=== PATIENT | female | born 1985 | race American Indian/Alaskan Native ===

== ENCOUNTER 2018-10-11 20:21 | Emergency (ER) | payer MEDICAID, OTHER ==
--- NOTE | 2018-10-11 20:28 | Event Note ---
ED Screening Note ED Screening Note: pt presents with pelvic pain that began two days ago + lower back pain +frequency, decreased output no dysuria no vaginal discharge no V/D normal BM earlier today no PMHx FOREP[facility]PER appt on 10/[address] Brody no allergies to medications LNMP: middle of september non smoker +occ drinker no drug use This initial assessment/diagnostic orders/clinical plan/treatment(s) is/are subject to change based on patients health status, clinical progression and re- assessment by fellow clinical providers in the ED. Further treatment and workup at subsequent clinical providers discretion. Patient/guardian urged not to elope from the ED as their condition may be serious if not clinically assessed and managed. Initial orders include: UA, urine preg
[2018-10-11 20:51] LABS: Bacteria,Urine 1+ /HPF (Negative); Bilirubin,Urine NEG (Negative); Blood,Urine NEG (Negative); Color,Urine Yellow (Yellow); Mucus,Urine 3+ /HPF; Protein,Urine <15 mg/dL mg/dL (Negative)
[2018-10-11 20:52] LABS: HCG Qualitative,Urine Negative (Negative)
[2018-10-11] MEDS ORDERED: MORPHINE IV ONE (23:26)
[2018-10-11] MEDS ORDERED: ZOFRAN IV ONE (23:27)
[2018-10-12 00:28] LABS: Alanine Aminotransferase 11 units/L (7-56); Albumin 3.8 g/dL (3.9-5); BUN/Creatinine Ratio 21; Blood Urea Nitrogen 15 mg/dL (7-17); Calcium 9.2 mg/dL (8.4-10.2); Hemolysis Index 8
--- NOTE | 2018-10-12 01:09 | Cat Scan Report ---
PROCEDURE: CT ABDOMEN PELVIS W CON TECHNIQUE: Computerized axial tomography of the abdomen and pelvis was performed after the IV inject ion of iodinated nonionic contrast. CT DOSE LENGTH PRODUCT: 2661.5 mGycm HISTORY: ABDOMINAL PAIN COMPARISONS: None . FINDINGS: Visualized lower thorax: No significant abnormality. Liver: Normal size and attenuation. Spleen: Normal size and attenuation. Gallbladder and biliary system: Normal. Pancreas: Normal. Adrenals: Normal. Kidneys: Normal. GI tract: No obstruction. No ileus or enteritis. The cecum, appendix and colon are normal. . Lymph nodes and mesentery: Normal. Vasculature: Normal.. Bladder: Normal. Reproductive organs: Normal 4 cm cyst in the left ovary. Minimal fluid lower pelvis.. Peritoneum: Minimal fluid lower pelvis. Musculoskeletal structures: No significant abnormality. Other: None . IMPRESSION: There is no evidence of intestinal or urinary tract obstruction. No ileus or enteritis. The appendix is normal. Minimal fluid lower pelvis is most likely physiologic. . This document is electronically signed by Ashley Kapadia DO., October 12 2018 01:07:05 AM ET
--- NOTE | 2018-10-12 01:46 | Emergency Department Report ---
ED General Adult HPI - General Chief complaint: Abdominal Pain Stated complaint: PELVIC/BACK/R LEG PAIN Time Seen by Provider: 10/11/18 20:26 Source: patient Mode of arrival: Ambulatory Limitations: No Limitations - History of Present Illness Initial comments: Patient is a 33-year-old -N[place]alese female with no past medical history who presents to the ED with a complaint of acute onset persistent low back pain that radiates to the lower abdomen and to the right lower extremities for the last 2 weeks. Patient states that in the last 2 days the pain has worsened especially lower back and lower abdominal pain. Patient denies nausea, vomiting, fever, chills, vaginal discharge, vaginal bleeding, dysuria, urinary frequency and urgency, fall, traumatic injury, heavy lifting, dizziness, numbness and tingling of the lower extremities bilaterally, urinary or bowel incontinence, diarrhea or dyspareunia. MD Complaint: Low back pain; Lower abdominal pain, Sciatica on the right side -: Sudden, week(s) (2) Location: abdomen (lower), buttocks Radiation: back, extremity (right leg), abdomen (lower) Severity scale (0 -10): 8 Quality: aching, sharp, constant Consistency: constant Improves with: none Worsens with: movement Associated Symptoms: denies other symptoms. denies: confusion, chest pain, cough, diaphoresis, fever/chills, headaches, loss of appetite, malaise, nausea/vomiting, rash, shortness of breath, syncope, weakness Treatments Prior to Arrival: none - Related Data Home Medications Medication Instructions Recorded Confirmed Last Taken Cholecalciferol (Vitamin D3) 12/26/14 12/26/14 12/11/14 [Vitamin D] Previous Rx's Medication Instructions Recorded Last Taken Type Sulfamethoxazole/Trimethoprim 1 each PO BID #14 tablet 12/26/14 Unknown Rx [Bactrim DS TAB] Lidocain2.5%/Prilocai2.5% [Emla] 5 gm TP ONCE PRN #1 tube 06/15/17 Unknown Rx Baclofen 20 mg PO Q8H PRN #21 tablet 10/12/18 Unknown Rx Ibuprofen [Motrin 800 MG tab] 800 mg PO Q8HR PRN #30 tablet 10/12/18 Unknown Rx Ondansetron [Zofran Odt] 4 mg PO Q6HR #15 tab.rapdis 10/12/18 Unknown Rx predniSONE [Deltasone] 60 mg PO QDAY #15 tab 10/12/18 Unknown Rx traMADol [Ultram] 50 mg PO Q6HR PRN #15 tablet 10/12/18 Unknown Rx Allergies Allergy/AdvReac Type Severity Reaction Status Date / Time oranges Allergy Hives Uncoded 10/11/13 18:38 ED Review of Systems ROS: Stated complaint: PELVIC/BACK/R LEG PAIN Other details as noted in HPI Constitutional: denies: chills, fever Eyes: denies: eye pain, eye discharge, vision change ENT: denies: ear pain, throat pain Respiratory: denies: cough, shortness of breath, wheezing Cardiovascular: denies: chest pain, palpitations Endocrine: no symptoms reported Gastrointestinal: abdominal pain (diffuse lower). denies: nausea, vomiting, diarrhea, constipation, hematemesis, hematochezia Genitourinary: denies: urgency, dysuria, discharge Musculoskeletal: back pain (lower), arthralgia (right hip and leg). denies: joint swelling Skin: denies: rash, lesions Neurological: denies: headache, weakness, paresthesias Psychiatric: denies: anxiety, depression Hematological/Lymphatic: denies: easy bleeding, easy bruising ED Past Medical Hx - Past Medical History Hx Hypertension: No Hx Congestive Heart Failure: No Hx Diabetes: No Hx Deep Vein Thrombosis: No Hx Renal Disease: No Hx Sickle Cell Disease: No Hx Seizures: No Hx Asthma: No Hx COPD: No Additional medical history: Vaginal delivery x 3 - Social History Smoking Status: Never Smoker Substance Use Type: None - Medications Home Medications: Home Medications Medication Instructions Recorded Confirmed Last Taken Type Cholecalciferol (Vitamin D3) 12/26/14 12/26/14 12/11/14 History [Vitamin D] Sulfamethoxazole/Trimethoprim 1 each PO BID #14 tablet 12/26/14 06/15/17 Unknown Rx [Bactrim DS TAB] Lidocain2.5%/Prilocai2.5% [Emla] 5 gm TP ONCE PRN #1 tube 06/15/17 Unknown Rx Baclofen 20 mg PO Q8H PRN #21 tablet 10/12/18 Unknown Rx Ibuprofen [Motrin 800 MG tab] 800 mg PO Q8HR PRN #30 tablet 10/12/18 Unknown Rx Ondansetron [Zofran Odt] 4 mg PO Q6HR #15 tab.rapdis 10/12/18 Unknown Rx predniSONE [Deltasone] 60 mg PO QDAY #15 tab 10/12/18 Unknown Rx traMADol [Ultram] 50 mg PO Q6HR PRN #15 tablet 10/12/18 Unknown Rx ED Physical Exam - General Limitations: No Limitations General appearance: alert, in no apparent distress - Head Head exam: Present: atraumatic, normocephalic, normal inspection - Eye Eye exam: Present: normal appearance, PERRL, EOMI. Absent: scleral icterus, conjunctival injection, nystagmus Pupils: Present: normal accommodation - ENT ENT exam: Present: normal exam, normal orophraynx, mucous membranes moist, TM's normal bilaterally, normal external ear exam - Neck Neck exam: Present: normal inspection, full ROM. Absent: tenderness, meningismus, lymphadenopathy, thyromegaly - Respiratory Respiratory exam: Present: normal lung sounds bilaterally. Absent: respiratory distress, wheezes, rales, rhonchi, chest wall tenderness, accessory muscle use, decreased breath sounds, prolonged expiratory - Cardiovascular Cardiovascular Exam: Present: regular rate, normal rhythm, normal heart sounds. Absent: systolic murmur, diastolic murmur, rubs, gallop - GI/Abdominal GI/Abdominal exam: Present: soft, tenderness (mild diffuse lower abdominal area, no guarding or rebound), normal bowel sounds. Absent: distended, guarding, rebound, hyperactive bowel sounds, hypoactive bowel sounds, organomegaly - Rectal Rectal exam: Present: deferred - Extremities Exam Extremities exam: Present: normal inspection, full ROM, tenderness (right hip), normal capillary refill - Back Exam Back exam: Present: normal inspection, tenderness (Palpable lumbosacral tebder ), muscle spasm, paraspinal tenderness (lumbosacral paraspinal). Absent: full ROM (limited due to pain), CVA tenderness (L) - Neurological Exam Neurological exam: Present: alert, oriented X3, CN II-XII intact, normal gait, reflexes normal - Psychiatric Psychiatric exam: Present: normal affect, normal mood - Skin Skin exam: Present: warm, dry, intact, normal color. Absent: rash ED Course Vital Signs 10/11/18 20:26 Temperature 99.2 F Pulse Rate 78 Respiratory 18 Rate Blood Pressure 124/72 [Left] O2 Sat by Pulse 97 Oximetry - Reevaluation(s) Reevaluation #1: 10/12/18 01:49 Patient is alert and oriented 3 and is not in distress with normal vital signs. Lab test results and urinalysis were reviewed and are unremarkable including hCG Quant showed a negative . Abdomen pelvis CT scan with contrast shows no acute abdominal pathology including appendix. Patient was treated for pain in the ED and on reevaluation, pain was well controlled. Patient discharged home on pain medications. Patient symptoms are likely from muscle spasms and sciatica. Patient discharged home on medications and advised to follow-up with her primary care physician in 5-7 days for reevaluation or return to the ED immediately if symptoms get worse. 10/12/18 01:49 ED Medical Decision Making - Lab Data Result diagrams: 10/11/18 23:41 - Radiology Data Radiology results: report reviewed, image reviewed Abdomen-pelvis CT Scan with contrast shows no acute pathology in the abdomen and pelvis including appendix. - Medical Decision Making Patient is alert and oriented 3 and is not in distress with normal vital signs. Lab test results and urinalysis were reviewed and are unremarkable including hCG Quant showed a negative . Abdomen pelvis CT scan with contrast shows no acute abdominal pathology including appendix. Patient was treated for pain in the ED and on reevaluation, pain was well controlled. Patient discharged home on pain medications. Patient symptoms are likely from muscle spasms and sciatica. Patient discharged home on medications and advised to follow-up with her primary care physician in 5-7 days for reevaluation or return to the ED immediately if symptoms get worse. 10/12/18 01:49 - Differential Diagnosis Muscle spasm of back; Acute low back pain with sciatica; Abdominal pain Critical care attestation.: If time is entered above; I have spent that time in minutes in the direct care of this critically ill patient, excluding procedure time. ED Disposition Clinical Impression: Spasm of muscle of lower back Abdominal pain Qualifiers: Abdominal location: lower abdomen, unspecified Qualified Code(s): R10.30 - Lower abdominal pain, unspecified Acute low back pain with right-sided sciatica Qualifiers: Back pain laterality: right Qualified Code(s): M54.41 - Lumbago with sciatica, right side Disposition: TO HOME OR SELFCARE Is pt being admited?: No Does the pt Need Aspirin: No Condition: Stable Instructions: Abdominal Pain (ED), Lumbar Radiculopathy (ED), Muscle Spasm (ED) Additional Instructions: Take medications with food, drink plenty of fluids and follow up with your primary care physician in 3-5 days for reevaluation. Return to the ED immediately if symptoms get worse. Prescriptions: Baclofen 20 mg PO Q8H PRN #21 tablet PRN Reason: Spasms predniSONE [Deltasone] 60 mg PO QDAY #15 tab Ibuprofen [Motrin 800 MG tab] 800 mg PO Q8HR PRN #30 tablet PRN Reason: Pain traMADol [Ultram] 50 mg PO Q6HR PRN #15 tablet PRN Reason: Pain Ondansetron [Zofran Odt] 4 mg PO Q6HR #15 tab.rapdis Referrals: ZITA BRYANT MD [Primary Care Provider] - 3-5 Days Time of Disposition: 01:55 Print Language: JAPANESE
[2018-10-12] MEDS ORDERED: BENADRYL ONE (02:02)
[2018-10-12] MEDS ORDERED: BENADRYL IV ONE (02:08)
[2018-10-12 02:50] VITALS: BP 119/73
== END 2018-10-12 02:10 | disposition home or self-care (01) ==
LOC: ED 20:21
DX: M62.830 Muscle spasm of back (principal); M54.41 Lumbago with sciatica, right side; R10.30 Lower abdominal pain, unspecified; Z91.018 Allergy to other foods
CPT/HCPCS: 36415; 74177; 80053; 81001; 81025; 83690; 84702; 96374; 96375; 99284; J1200; J2270; J2405; Q9967; 85025

== ENCOUNTER 2019-01-29 11:31 | Emergency (ER) | payer OTHER ==
--- NOTE | 2019-01-29 11:43 | Event Note ---
ED Screening Note Date of service: 01/29/19 Time: 11:39 ED Screening Note: 33 y o female at 11 weeks gestation presents with vaginal bleeding that started today preceded by sharp pelvic pain obgyn: [facility] This initial assessment/diagnostic orders/clinical plan/treatment(s) is/are day bject to change based on patients health status, clinical progression and re- assessment by fellow clinical providers in the ED. Further treatment and workup at subsequent clinical providers discretion. Patient/guardian urged not to elope from the ED as their condition may be serious if not clinically assessed and managed. Initial orders include: labs U/s ua
[2019-01-29 12:27] LABS: Basophils % (Auto) 0.3 % (0.0-1.8); Eosinophils % (Auto) 0.8 % (0.0-4.3); Hematocrit 39.3 % (30.3-42.9); Hemoglobin 12.4 gm/dl (10.1-14.3); Lymphocytes # (Auto) 1.4 K/mm3 (1.2-5.4); Lymphocytes % (Auto) 26.9 % (13.4-35.0); Mean Corpuscular HGB Conc 32 % (30-34); Mean Corpuscular Volume 82 fl (79-97); Monocytes # (Auto) 0.3 K/mm3 (0.0-0.8); Monocytes % (Auto) 5.7 % (0.0-7.3); Platelet Count 233 K/mm3 (140-440); Red Blood Count 4.81 M/mm3 (3.65-5.03)
[2019-01-29 12:31] LABS: BUN/Creatinine Ratio 13; Blood Urea Nitrogen 8 mg/dL (7-17); Calcium 9.1 mg/dL (8.4-10.2); Hemolysis Index 6
[2019-01-29 13:54] LABS: Bilirubin,Urine NEG (Negative); Blood,Urine MOD (Negative); Color,Urine Red (Yellow); Urobilinogen,Urine < 2.0 mg/dL (<2.0)
[2019-01-29 14:08] LABS: RBC,Urine > 182.0 /HPF (0.0-6.0)
--- NOTE | 2019-01-29 15:49 | Emergency Department Report ---
HPI - General Chief Complaint: Vaginal Bleeding Time Seen by Provider: 01/29/19 11:39 - HPI HPI: 33 yo female comes to ER w co vag bleeding in preg. She reports being 11 weeks. LMP 7-9. . [facility] Past Medical Hx - Past Medical History Hx Hypertension: No Hx Congestive Heart Failure: No Hx Diabetes: No Hx Deep Vein Thrombosis: No Hx Renal Disease: No Hx Sickle Cell Disease: No Hx Seizures: No Hx Asthma: No Hx COPD: No Additional medical history: Vaginal delivery x 3 - Surgical History Past Surgical History?: No - Social History Smoking Status: Never Smoker Substance Use Type: None - Medications Home Medications: Home Medications Medication Instructions Recorded Confirmed Last Taken Type Cholecalciferol (Vitamin D3) 12/26/14 12/26/14 12/11/14 History [Vitamin D] Sulfamethoxazole/Trimethoprim 1 each PO BID #14 tablet 12/26/14 06/15/17 Unknown Rx [Bactrim DS TAB] Lidocain2.5%/Prilocai2.5% [Emla] 5 gm TP ONCE PRN #1 tube 06/15/17 Unknown Rx Baclofen 20 mg PO Q8H PRN #21 tablet 10/12/18 Unknown Rx Ibuprofen [Motrin 800 MG tab] 800 mg PO Q8HR PRN #30 tablet 10/12/18 Unknown Rx Ondansetron [Zofran Odt] 4 mg PO Q6HR #15 tab.rapdis 10/12/18 Unknown Rx predniSONE [Deltasone] 60 mg PO QDAY #15 tab 10/12/18 Unknown Rx traMADol [Ultram] 50 mg PO Q6HR PRN #15 tablet 10/12/18 Unknown Rx traMADol [Ultram] 50 mg PO Q6HR PRN #12 tablet 01/29/19 Unknown Rx ED Review of Systems ROS: Stated complaint: VAG BLEEDING Other details as noted in HPI Comment: All other systems reviewed and negative Physical Exam - Physical Exam Vital Signs: Vital Signs 01/29/19 11:39 Temperature 98.5 F Pulse Rate 92 H Respiratory 92 H Rate Blood Pressure 132/78 O2 Sat by Pulse 99 Oximetry Physical Exam: s1s2 lungs cta abd snt gravid ambulatory ED Course Vital Signs 01/29/19 11:39 Temperature 98.5 F Pulse Rate 92 H Respiratory 92 H Rate Blood Pressure 132/78 O2 Sat by Pulse 99 Oximetry ED Medical Decision Making - Lab Data Result diagrams: 01/29/19 11:48 01/29/19 11:48 - Radiology Data Radiology results: report reviewed, image reviewed - Medical Decision Making Vital Signs 01/29/19 11:39 Temperature 98.5 F Pulse Rate 92 H Respiratory 92 H Rate Blood Pressure 132/78 O2 Sat by Pulse 99 Oximetry Labs 01/29/19 01/29/19 01/29/19 11:48 11:48 11:48 WBC 5.1 RBC 4.81 Hgb 12.4 Hct 39.3 MCV 82 MCH 26 L MCHC 32 RDW 15.0 Plt Count 233 Lymph % (Auto) 26.9 [place] % (Auto) 5.7 Eos % (Auto) 0.8 Baso % (Auto) 0.3 Lymph # 1.4 [place] # 0.3 Eos # 0.0 Baso # 0.0 Seg Neutrophils % 66.3 Seg Neutrophils # 3.4 Sodium 138 Potassium 4.0 Chloride 102.0 Carbon Dioxide 24 Anion Gap 16 BUN 8 Creatinine 0.6 L Estimated GFR > 60 BUN/Creatinine Ratio 13 Glucose 98 Calcium 9.1 HCG, Quant 2984 H Urine Color Urine Turbidity Urine pH Ur Specific [place] Urine Protein Urine Glucose (UA) Urine Ketones Urine Blood Urine Nitrite Urine Bilirubin Urine Urobilinogen Ur Leukocyte Esterase Urine WBC (Auto) Urine RBC (Auto) Blood Type Ord Rhogam Gestat 01/29/19 01/29/19 12:00 Unknown WBC RBC Hgb Hct MCV MCH MCHC RDW Plt Count Lymph % (Auto) [place] % (Auto) Eos % (Auto) Baso % (Auto) Lymph # [place] # Eos # Baso # Seg Neutrophils % Seg Neutrophils # Sodium Potassium Chloride Carbon Dioxide Anion Gap BUN Creatinine Estimated GFR BUN/Creatinine Ratio Glucose Calcium HCG, Quant Urine Color Red Urine Turbidity Cloudy Urine pH 6.0 Ur Specific [place] 1.011 Urine Protein 100 mg/dl Urine Glucose (UA) Neg Urine Ketones Neg Urine Blood Mod Urine Nitrite Neg Urine Bilirubin Neg Urine Urobilinogen < 2.0 Ur Leukocyte Esterase Neg Urine WBC (Auto) 6.0 Urine RBC (Auto) > 182.0 Blood Type B POSITIVE Ord Rhogam Gestat Rh pos labs noted ua noted rh pos us noted medicated for pain hgb stable no tachycardia and no hypotension pt informed of lab findings. Will dc home on pelvic rest with pain medications and follow up with obgyn in 48 hours. RN has been asked to correct VS- HR 90, RR 18 on exam Pt and family verbalize understanding of plan of care - Differential Diagnosis ro ab Critical care attestation.: If time is entered above; I have spent that time in minutes in the direct care of this critically ill patient, excluding procedure time. ED Disposition Clinical Impression: Spontaneous Disposition: - TO HOME OR SELFCARE Is pt being admited?: No Does the pt Need Aspirin: No Condition: Stable Instructions: Spontaneous Miscarriage (ED) Additional Instructions: pelvic rest follow up with obgyn in 48 hours motrin or tylenol for pain ultram for severe pain hydrate and eat well Prescriptions: traMADol [Ultram] 50 mg PO Q6HR PRN #12 tablet PRN Reason: Pain Referrals: PRIMARY CARE, [Primary Care Provider] - 3-5 Days Time of Disposition: 16:49
--- NOTE | 2019-01-29 16:22 | Ultrasound Report ---
ULTRASOUND PELVIS INDICATION: Vaginal bleeding. TECHNIQUE: Transabdominal and Transvaginal. Duplex Color Doppler used: Yes. COMPARISON: Pelvic ultrasound from 12/26/2014. FINDINGS: Uterus: Measures 12.5 x 6.7 x 7.2 cm. No intrauterine is identified. No mass is seen. The e ndometrial stripe is thickened and measures 19 mm. Right Ovary: Normal in size, measuring 2.5 x 2.2 x 1.3 cm, with expected color flow. No suspicious so lid or cystic lesions. Left Ovary: Normal in size, measuring 3.8 x 1.9 x 2.4 cm, with expected color flow. No suspicious nya id or cystic lesions. Urinary Bladder: Normal. Free Fluid: None. Additional Findings: None. IMPRESSION: 1. No acute sonographic abnormality of the pelvis. 2. Nonspecific endometrial thickening. 3. No intrauterine or ectopic is visualized sonographically. Correlation with the beta-hCG level is recommended along with close clinical follow-up. Signer Name: Rick Francis MD Signed: 01/29/2019 4:18 PM Workstation Name: [employer]
[2019-01-29] MEDS ORDERED: oxyCODONE /ACETAMINOPHEN 5-325MG TAB PO ONE (16:48)
[2019-01-29 17:16] VITALS: BP 102/64
== END 2019-01-29 17:21 | disposition home or self-care (01) ==
LOC: ED 11:31
DX: O03.9 Complete or unspecified spontaneous abortion without complication (principal); Z79.899 Other long term (current) drug therapy; Z91.018 Allergy to other foods
CPT/HCPCS: 36415; 76801; 76817; 80048; 81001; 84702; 85025; 86900; 86901

== ENCOUNTER 2020-01-18 02:34 | Inpatient (IN) | payer OTHER ==
[2020-01-18] MEDS ORDERED: SODIUM CHLORIDE 0.9% 1000 ML 1,000 ML IV SCH (03:00)
[2020-01-18] MEDS ORDERED: LACTATED RINGERS 1,000 ML ONE (03:00)
[2020-01-18] MEDS ORDERED: ACETAMINOPHEN 325 MG TAB PO PRN (03:03)
[2020-01-18] MEDS ORDERED: fentaNYL 100 MCG/2 ML INJ IV PRN (03:03)
[2020-01-18] MEDS ORDERED: CARBOPROST TROMETHAMINE 250 MCG/1 ML INJ IM PRN (03:03)
[2020-01-18] MEDS ORDERED: MINERAL OIL 30 ML ORAL LIQD PO PRN (03:03)
[2020-01-18] MEDS ORDERED: PROMETHAZINE 25 MG TAB PO PRN (03:03)
[2020-01-18] MEDS ORDERED: ePHEDrine SULFATE 50 MG/1 ML INJ IV PRN (03:03)
[2020-01-18] MEDS ORDERED: NALOXONE 0.4 MG/1 ML INJ IV PRN (03:03)
[2020-01-18] MEDS ORDERED: LIDOCAINE (2%) 20 MG/1 ML VIAL 20 ML MDV INFILTRATI ONE (03:03)
[2020-01-18] MEDS ORDERED: ONDANSETRON 4 MG/2 ML INJ IV PRN (03:03)
[2020-01-18] MEDS ORDERED: TERBUTALINE 1 MG/1 ML INJ SUB-Q PRN (03:03)
[2020-01-18] MEDS ORDERED: METHYLERGONOVINE MALEATE 0.2 MG/ML VIAL IM PRN (03:03)
--- NOTE | 2020-01-18 03:12 | History and Physical Report ---
History of Present Illness Date of examination: 01/18/20 (Pt with painful ctxs and feeling vaginal pressure) Date of admission: 01/18/2020 Chief complaint: Contractions and vaginal pressure History of present illness: EDC Confirmation: 01/27/2020 Gestational Age: 23 weeks Past History : 6 Term Births: 4 Living Children: 4 Para: 4 Mult. Births: 0 Prev : 0 Prev. attempt? 0 Aborta: 1 Elect. Ab: 0 Spont. Ab: 1 Ectopics: 0 # 1 Delivery date: 2007 Weeks Gestation: term labor: no Delivery type: Anesthesia type: epidural Delivery location: [facility] Sex: Female weight: 6#8 # 2 Delivery date: 2010 Weeks Gestation: term labor: no Delivery type: Anesthesia type: epidural Delivery location: [facility] Sex: Female weight: 6# # 3 Delivery date: 2012 Weeks Gestation: term labor: no Delivery type: Anesthesia type: none Delivery location: [facility] Sex: Male weight: 6# # 4 Delivery date: 06/14/2017 Weeks Gestation: 39 Delivery type: Vaginal Anesthesia type: none Delivery location: [facility] Sex: male weight: 7.44 Comments: xiomara / CAN X 2 tight; reduced after delivery # 5 Delivery date: 01/2019 Weeks Gestation: 12 Delivery type: SAB Past Medical History: Reviewed history from 10/13/2016 and no changes required: Negative Past Medical History denies hx abnormal pap Past Surgical History: Reviewed history from 10/13/2016 and no changes required: negative Past Medical History Abnormal PAP: negative TRINA Exposure: negative Infertility: negative Uterine Anomaly: negative Uterine Surgery (not C/S): negative Other Gynecologic Problems: negative 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/Smoking Genetic History Congenital Heart Defect: Mom: no Dad: no Jarrod Disease: Mom: no Dad: no Thalassemia Mom: no Dad: no Neural Tube Defect Mom: no Dad: no Down's Syndrome Mom: no Dad: no Arthur-Sachs Mom: no Dad: no Sickle Cell Disease/Trait Mom: no Dad: no Hemophilia Mom: no Dad: no Muscular Dystrophy Mom: no Dad: no Cystic Fibrosis Mom: no Dad: no [place] Chorea Mom: no Dad: no Mental Retardation Mom: no Dad: no Fragile X Mom: no Dad: no Other Genetic/Chromosomal Disorder Mom: no Dad: no Child w/other defect Mom: no Dad: no Enviromental Exposures Xray Exposure: no Medication, drug, or alcohol use since LMP: no Chemical/Other Exposure: no Exposure to Cat Liter: no Hx of Parvovirus (Fifth Disease): no Occupational Exposure to Children: none Active Medications (reviewed today): EMLA CREAM 2.5/2.5%; 5GM TUBE () apply small amount to affected area prior to procedure Current Allergies (reviewed today): No known allergies Past History Past Medical History: no pertinent history Past Surgical History: no surgical history Family/Genetic History: none Social history: no significant social history, other (Limited PNC) - Obstetrical History Expected Date of Delivery: 01/27/20 Actual Gestation: 38 Week(s) 5 Day(s) : 6 Para: 4 Hx # Term Pregnancies: 4 Number of Pregnancies: 0 Spontaneous Abortions: 1 Induced : 0 Number of Living Children: 4 Medications and Allergies Allergies Allergy/AdvReac Type Severity Reaction Status Date / Time oranges Allergy Mild Hives Uncoded 01/18/20 02:43 Home Medications Medication Instructions Recorded Confirmed Last Taken Type Cholecalciferol (Vitamin D3) 12/26/14 12/26/14 08/31/19 History [Vitamin D] Sulfamethoxazole/Trimethoprim 1 each PO BID #14 tablet 12/26/14 06/15/17 Rx [Bactrim DS TAB] Lidocain2.5%/Prilocai2.5% [Emla] 5 gm TP ONCE PRN #1 tube 06/15/17 07/14/19 Rx Baclofen 20 mg PO Q8H PRN #21 tablet 10/12/18 06/10/19 Rx Ibuprofen [Motrin 800 MG tab] 800 mg PO Q8HR PRN #30 tablet 10/12/18 03/10/19 Rx Ondansetron [Zofran Odt] 4 mg PO Q6HR #15 tab.rapdis 10/12/18 01/09/20 Rx predniSONE [Deltasone] 60 mg PO QDAY #15 tab 10/12/18 01/12/19 Rx traMADoL [Ultram] 50 mg PO Q6HR PRN #15 tablet 10/12/18 11/09/19 Rx traMADoL [Ultram] 50 mg PO Q6HR PRN #12 tablet 01/29/19 10/07/19 Rx Daily Combo Pack 600 mg PO DAILY 01/18/20 01/18/20 01/17/20 08:00 History Active Meds: Active Medications Sodium Chloride (Nacl 0.9% 1000 Ml) 1,000 mls @ 125 mls/hr IV DIRECT ROE Lidocaine (Xylocaine 2%) 20 ml INFILTRATI ONCE ONE Stop: 01/18/20 03:04 Terbutaline Sulfate (Brethine) 0.25 mg SUB-Q ONCE PRN PRN Reason: Hyperstimulation/Hypertonicity Review of Systems All systems: negative - Physical Exam Breasts: Positive: deferred Cardiovascular: Regular rate, Normal S1, Normal S2 Lungs: Positive: Normal air movement Abdomen: Positive: normal appearance, soft, normal bowel sounds. Negative: distention, tenderness Genitourinary (Female): Positive: normal external genitalia, normal perenium Vulva: both: normal Vagina: Positive: normal moisture. Negative: discharge Cervix: Negative: lesion, discharge Uterus: Positive: normal size, normal contour Adnexa: both: normal Anus/Rectum: Positive: normal perianal skin, heme negative. Negative: rectal mass, hemorrhoids Extremities: Deep Tendon Reflex Grade: Normal +2 - Obstetrical FHR: category 1 Uterine Contraction Monitor Mode: External Cervical Dilatation: 3 (Per advertising space clerk) Cervical Effacement Percentage: 60 station: -3 Uterine Contraction Pattern: Regular Uterine Tone Measurement Phase: Resting Uterine Contraction Intensity: Moderate Results All other labs normal. GBS NEGATIVE HBsAg Screen Negative Negative *1 RPR Non Reactive Non Reactive *2 Rubella Antibodies, IgG 3.23 index Immune >0.99 *3 Non-immune <0.90 Equivocal 0.90 - 0.99 Immune >0.99 ABO Grouping B *4 Rh Factor Positive *5 Please note: Prior records for this patient's ABO / Rh type are not available for additional verification. Antibody Screen Negative Negative *6 WBC 4.4 x10E3/uL 3.4-10.8 *7 RBC 3.80 x10E6/uL 3.77-5.28 *8 Hemoglobin [L] 10.1 g/dL 11.1-15.9 *9 Hematocrit [L] 32.3 % 34.0-46.6 *10 MCV 85 fL 79-97 *11 MCH 26.6 pg 26.6-33.0 *12 MCHC [L] 31.3 g/dL 31.5-35.7 *13 RDW 15.3 % 11.7-15.4 *14 Platelets 177 x10E3/uL 150-450 *15 Neutrophils 68 % Not Estab. *16 Lymphs 25 % Not Estab. *17 Monocytes 6 % Not Estab. *18 Eos 1 % Not Estab. *19 Basos 0 % Not Estab. *20 ! Immature Cells <No Reported Value> *21 Neutrophils (Absolute) 3.0 x10E3/uL 1.4-7.0 *22 Lymphs (Absolute) 1.1 x10E3/uL 0.7-3.1 *23 Monocytes(Absolute) 0.3 x10E3/uL 0.1-0.9 *24 Eos (Absolute) 0.0 x10E3/uL 0.0-0.4 *25 Baso (Absolute) 0.0 x10E3/uL 0.0-0.2 *26 ! Immature Granulocytes 0 % Not Estab. *27 ! Immature Grans (Abs) 0.0 x10E3/uL 0.0-0.1 *28 ! NRBC <No Reported Value> *29 Hematology Comments: <No Reported Value> *30 Tests: (2) HB Solu + Rflx [facility] (101085) Hemoglobin (Hgb) Solubility Negative Negative *31 Tests: (3) HIV Ag/Ab with Reflex ([id number]) HIV Screen 4th Generation wRfx Non Reactive Non Reactive *32 Tests: (4) Gest. Diabetes 1-Hr Screen (338707) ! Gestational Diabetes Screen 113 mg/dL 65-139 *33 According to ADA, a glucose threshold of >139 mg/dL after 50-gram load identifies approximately 80% of women with gestational diabetes mellitus, while the sensitivity is further increased to approximately 90% by a threshold of >129 mg/dL. Tests: (5) HCV Ab w/Rflx to Verification ([id number]) ! HCV Ab <0.1 s/co ratio 0.0-0.9 *34 Tests: (6) Comment: ([id number]) ! Comment: SPRCS *35 Non reactive HCV antibody screen is consistent with no HCV infection, unless recent infection is suspected or other evidence exists to indicate HCV infection. Tests: (7) Urine Culture, Routine ([id number]) Urine Culture, Routine Final report *36 Tests: (8) Result ([id number]) ! Result 1 MUG *37 Mixed urogenital cindy 10,000-25,000 colony forming units per mL Assessment and Plan A: 34 y.o. @ 38.5 wks in labor, vaginal pressure. GBS negative. Cervical exam 60/-3 per advertising space clerk. P: Admit to L&D Augmentation of labor with pitocin as needed. Initiate IV fluid bolus for epidural placement if patient desires.
[2020-01-18] MEDS ORDERED: OXYTOCIN DRIP 30 UNITS/500 ML BAG IV SCH (04:00)
[2020-01-18] MEDS ORDERED: OXYTOCIN 20 UNIT/1000ML DRIP 20 UNITS/1,000 ML BAG IV SCH (04:00)
[2020-01-18] MEDS ORDERED: LACTATED RINGERS 1,000 ML IV SCH (04:00)
[2020-01-18 04:19] LABS: Basophils % (Auto) 0.6 % (0.0-1.8); Eosinophils % (Auto) 0.5 % (0.0-4.3); Hematocrit 30.3 % (30.3-42.9); Hemoglobin 9.8 gm/dl (10.1-14.3); Lymphocytes # (Auto) 1.2 K/mm3 (1.2-5.4); Lymphocytes % (Auto) 24.9 % (13.4-35.0); Mean Corpuscular HGB Conc 32 % (30-34); Mean Corpuscular Volume 81 fl (79-97); Monocytes # (Auto) 0.4 K/mm3 (0.0-0.8); Monocytes % (Auto) 9.2 % (0.0-7.3); Platelet Count 185 K/mm3 (140-440); Red Blood Count 3.76 M/mm3 (3.65-5.03); Red Cell Distribution Width 14.1 % (13.2-15.2)
[2020-01-18] MEDS ORDERED: BUTORPHANOL 2 MG/1 ML INJ IV ONE (05:54)
--- NOTE | 2020-01-18 06:58 | Ultrasound Report ---
Limited obstetrical ultrasound. HISTORY: Evaluate presentation. FINDINGS: A single viable intrauterine has heart tones of 116 bpm. position is cephalic. IMPRESSION: position cephalic. Signer Name: Chip Sanford MD Signed: 01/18/2020 6:54 AM Workstation Name: [email or web address]
[2020-01-18] MEDS ORDERED: ACETAMINOPHEN 500 MG TAB PO PRN (10:15)
--- NOTE | 2020-01-18 11:12 | Progress Note ---
Assessment and Plan Pt with unchanged cervical exam since this AM. Explained to patient that currently with unchanged cervical exam of 3 (internal OS 1.5)/60/-3 for about 7 hours, will initiate therapeutic rest and watch her until 5pm. If her cervix remains unchanged around that time, we will be sending her home. Pt still with some contractions and asking if there is anything that can be done to speed up labor. Explained that Pitocin ( was only on 4 mu and never increased) was tried and will be stopped d/t unchanged cervical exam over 7 hours. Pt verbalized understanding and agreed to therapeutic rest. Will continue to monitor maternal and status. Subjective - Subjective Date of service: 01/18/20 (Pt uncomfortable with ctxs) Principal diagnosis: IUP @ 38.5 wks in early labor Interval history: EDC Confirmation: 01/27/2020 Gestational Age: 23 weeks Past History : 6 Term Births: 4 Living Children: 4 Para: 4 Mult. Births: 0 Prev : 0 Prev. attempt? 0 Aborta: 1 Elect. Ab: 0 Spont. Ab: 1 Ectopics: 0 # 1 Delivery date: 2007 Weeks Gestation: term labor: no Delivery type: Anesthesia type: epidural Delivery location: [facility] Infant Sex: Female weight: 6#8 # 2 Delivery date: 2010 Weeks Gestation: term labor: no Delivery type: Anesthesia type: epidural Delivery location: [facility] Infant Sex: Female weight: 6# # 3 Delivery date: 2012 Weeks Gestation: term labor: no Delivery type: Anesthesia type: none Delivery location: [facility] Sex: Male weight: 6# # 4 Delivery date: 06/14/2017 Weeks Gestation: 39 Delivery type: Vaginal Anesthesia type: none Delivery location: [facility] Sex: male weight: 7.44 Comments: xiomara / CAN X 2 tight; reduced after delivery # 5 Delivery date: 01/2019 Weeks Gestation: 12 Delivery type: SAB Past Medical History: Reviewed history from 10/13/2016 and no changes required: Negative Past Medical History denies hx abnormal pap Past Surgical History: Reviewed history from 10/13/2016 and no changes required: negative Past Medical History Abnormal PAP: negative TRINA Exposure: negative Infertility: negative Uterine Anomaly: negative Uterine Surgery (not C/S): negative Other Gynecologic Problems: negative 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/Smoking Genetic History Congenital Heart Defect: Mom: no Dad: no Jarrod Disease: Mom: no Dad: no Thalassemia Mom: no Dad: no Neural Tube Defect Mom: no Dad: no Down's Syndrome Mom: no Dad: no Arthur-Sachs Mom: no Dad: no Sickle Cell Disease/Trait Mom: no Dad: no Hemophilia Mom: no Dad: no Muscular Dystrophy Mom: no Dad: no Cystic Fibrosis Mom: no Dad: no [place] Chorea Mom: no Dad: no Mental Retardation Mom: no Dad: no Fragile X Mom: no Dad: no Other Genetic/Chromosomal Disorder Mom: no Dad: no Child w/other defect Mom: no Dad: no Enviromental Exposures Xray Exposure: no Medication, drug, or alcohol use since LMP: no Chemical/Other Exposure: no Exposure to Cat Liter: no Hx of Parvovirus (Fifth Disease): no Occupational Exposure to Children: none Active Medications (reviewed today): EMLA CREAM 2.5/2.5%; 5GM TUBE () apply small amount to affected area prior to procedure Current Allergies (reviewed today): No known allergies Objective - Vital Signs Vital Signs: Vital Signs - 12hr 01/18/20 01/18/20 01/18/20 03:00 04:00 04:39 Temperature 99.3 F 99 F Pulse Rate 78 82 101 H Respiratory 20 18 Rate Blood Pressure 135/95 Blood Pressure 130/84 135/95 [Left] O2 Sat by Pulse 100 98 100 Oximetry 01/18/20 01/18/20 01/18/20 04:44 04:52 04:57 Temperature Pulse Rate 101 H 83 70 Respiratory Rate Blood Pressure Blood Pressure [Left] O2 Sat by Pulse 100 99 98 Oximetry 01/18/20 01/18/20 01/18/20 05:02 05:07 05:12 Temperature Pulse Rate 73 81 83 Respiratory Rate Blood Pressure Blood Pressure [Left] O2 Sat by Pulse 99 99 98 Oximetry 01/18/20 01/18/20 01/18/20 05:17 05:22 05:27 Temperature Pulse Rate 79 82 87 Respiratory Rate Blood Pressure 107/55 Blood Pressure [Left] O2 Sat by Pulse 100 99 99 Oximetry 01/18/20 01/18/20 01/18/20 05:32 05:37 05:42 Temperature Pulse Rate 86 80 76 Respiratory Rate Blood Pressure 104/58 Blood Pressure [Left] O2 Sat by Pulse 97 99 99 Oximetry 01/18/20 01/18/20 01/18/20 05:47 05:52 05:57 Temperature Pulse Rate 90 92 H 81 Respiratory Rate Blood Pressure Blood Pressure [Left] O2 Sat by Pulse 100 99 98 Oximetry 01/18/20 01/18/20 01/18/20 06:02 06:07 06:12 Temperature Pulse Rate 77 83 75 Respiratory Rate Blood Pressure 115/59 Blood Pressure [Left] O2 Sat by Pulse 99 98 100 Oximetry 01/18/20 01/18/20 01/18/20 06:21 06:26 06:31 Temperature Pulse Rate 40 L 81 77 Respiratory Rate Blood Pressure Blood Pressure [Left] O2 Sat by Pulse 98 100 97 Oximetry 01/18/20 01/18/20 01/18/20 06:36 06:41 06:46 Temperature Pulse Rate 76 79 79 Respiratory Rate Blood Pressure 105/55 Blood Pressure [Left] O2 Sat by Pulse 95 98 99 Oximetry 01/18/20 01/18/20 01/18/20 06:51 06:56 07:01 Temperature Pulse Rate 78 80 71 Respiratory Rate Blood Pressure Blood Pressure [Left] O2 Sat by Pulse 99 96 98 Oximetry 01/18/20 01/18/20 01/18/20 07:06 07:11 07:13 Temperature Pulse Rate 79 77 77 Respiratory Rate Blood Pressure 104/51 Blood Pressure [Left] O2 Sat by Pulse 97 97 Oximetry 01/18/20 01/18/20 01/18/20 07:16 07:21 07:26 Temperature Pulse Rate 82 85 76 Respiratory Rate Blood Pressure Blood Pressure [Left] O2 Sat by Pulse 97 96 99 Oximetry 01/18/20 01/18/20 01/18/20 07:31 07:36 07:41 Temperature Pulse Rate 81 78 84 Respiratory Rate Blood Pressure 101/55 Blood Pressure [Left] O2 Sat by Pulse 99 97 98 Oximetry 01/18/20 01/18/20 01/18/20 07:46 07:51 07:56 Temperature Pulse Rate 76 84 80 Respiratory Rate Blood Pressure Blood Pressure [Left] O2 Sat by Pulse 99 99 97 Oximetry 01/18/20 01/18/20 01/18/20 08:01 08:06 08:11 Temperature Pulse Rate 77 80 81 Respiratory Rate Blood Pressure 99/58 Blood Pressure [Left] O2 Sat by Pulse 98 97 99 Oximetry 01/18/20 01/18/20 01/18/20 08:16 08:21 08:26 Temperature Pulse Rate 73 77 80 Respiratory Rate Blood Pressure Blood Pressure [Left] O2 Sat by Pulse 100 98 98 Oximetry 01/18/20 01/18/20 01/18/20 08:31 08:36 08:41 Temperature Pulse Rate 73 74 81 Respiratory Rate Blood Pressure 103/59 Blood Pressure [Left] O2 Sat by Pulse 99 99 99 Oximetry 01/18/20 01/18/20 01/18/20 08:46 08:51 08:56 Temperature Pulse Rate 77 78 70 Respiratory Rate Blood Pressure Blood Pressure [Left] O2 Sat by Pulse 98 99 98 Oximetry 01/18/20 01/18/20 01/18/20 09:01 09:06 09:11 Temperature Pulse Rate 78 77 85 Respiratory Rate Blood Pressure Blood Pressure [Left] O2 Sat by Pulse 98 98 100 Oximetry 01/18/20 01/18/20 01/18/20 09:12 09:16 09:21 Temperature Pulse Rate 67 75 80 Respiratory Rate Blood Pressure 110/57 Blood Pressure [Left] O2 Sat by Pulse 98 100 Oximetry 01/18/20 01/18/20 01/18/20 09:26 09:31 09:36 Temperature Pulse Rate 89 98 H 84 Respiratory Rate Blood Pressure Blood Pressure [Left] O2 Sat by Pulse 100 100 99 Oximetry 01/18/20 01/18/20 01/18/20 09:41 09:43 09:46 Temperature Pulse Rate 85 73 88 Respiratory Rate Blood Pressure 125/60 Blood Pressure [Left] O2 Sat by Pulse 97 99 Oximetry 01/18/20 01/18/20 01/18/20 09:51 09:56 10:01 Temperature Pulse Rate 77 82 88 Respiratory Rate Blood Pressure Blood Pressure [Left] O2 Sat by Pulse 100 94 100 Oximetry 01/18/20 01/18/20 01/18/20 10:06 10:08 10:11 Temperature Pulse Rate 85 78 82 Respiratory Rate Blood Pressure Blood Pressure [Left] O2 Sat by Pulse 99 93 100 Oximetry 01/18/20 01/18/20 01/18/20 10:13 10:16 10:21 Temperature Pulse Rate 75 78 86 Respiratory Rate Blood Pressure 105/53 Blood Pressure [Left] O2 Sat by Pulse 100 100 Oximetry 01/18/20 01/18/20 01/18/20 10:26 10:31 10:36 Temperature Pulse Rate 82 81 78 Respiratory Rate Blood Pressure Blood Pressure [Left] O2 Sat by Pulse 97 99 98 Oximetry 01/18/20 01/18/20 01/18/20 10:41 10:42 10:46 Temperature Pulse Rate 76 73 85 Respiratory Rate Blood Pressure 123/73 Blood Pressure [Left] O2 Sat by Pulse 99 100 Oximetry 01/18/20 01/18/20 10:51 10:56 Temperature Pulse Rate 77 84 Respiratory Rate Blood Pressure Blood Pressure [Left] O2 Sat by Pulse 98 99 Oximetry - Exam Breasts: deferred Cardiovascular: Regular rate Lungs: Normal air movement Abdomen: Present: normal appearance, soft, normal bowel sounds Vulva: both: normal Uterus: Present: normal FHR: category 1 Uterine Contraction Monitor Mode: External Cervical Dilatation: 3 (Internal OS 1.5) Cervical Effacement Percentage: 60 station: -3 Uterine Contraction Pattern: Irregular Uterine Tone Measurement Phase: Resting Uterine Contraction Intensity: Moderate Extremities: normal Deep Tendon Reflex Grade: Normal +2 - Labs Labs: Abnormal Labs 01/18/20 03:45 Hgb 9.8 L MCH 26 L King % (Auto) 9.2 H Laboratory Results - last 24 hr 01/18/20 01/18/20 01/18/20 03:45 03:45 03:45 WBC 4.9 RBC 3.76 Hgb 9.8 L Hct 30.3 MCV 81 MCH 26 L MCHC 32 RDW 14.1 Plt Count 185 Lymph % (Auto) 24.9 King % (Auto) 9.2 H Eos % (Auto) 0.5 Baso % (Auto) 0.6 Lymph # 1.2 King # 0.4 Eos # 0.0 Baso # 0.0 Seg Neutrophils % 64.8 Seg Neutrophils # 3.2 Syphilis IgG Antibody Coronavirus (PCR) Negative Blood Type B POSITIVE Antibody Screen Negative 01/18/20 03:45 WBC RBC Hgb Hct MCV MCH MCHC RDW Plt Count Lymph % (Auto) King % (Auto) Eos % (Auto) Baso % (Auto) Lymph # King # Eos # Baso # Seg Neutrophils % Seg Neutrophils # Syphilis IgG Antibody Nonreactive Coronavirus (PCR) Blood Type Antibody Screen
[2020-01-18 12:12] VITALS: BP 109/58
--- NOTE | 2020-01-18 16:02 | Discharge Summary ---
Providers - Providers Date of Admission: 01/18/20 03:11 Date of discharge: 01/18/20 (Pt agrees and is okay with discharge home.) Attending physician: SARKIS MACIAS Primary care physician: SARKIS MACIAS Hospitalization Reason for admission: other (Early labor) Delivery: other (Undelivered: Pt with unchanged cervix. ) Hospital course: Pt is 34 y.o. @ 38.5 wks, who presented to triage with c/o labor. She was examined and found to be 3/60/-3. Pt was very uncomfortable with contractions, so plan was to admit for augmentation. During her admission, her cervix remained unchanged. Pitocin was eventually turned off and patient was allowed to walk and given therapeutic rest. After walking and therapeutic rest, her cervical exam remained unchanged and her contractions stopped. There was a category 1 tracing throughout admission. She will be discharged home with strict follow up for a visit in the office and strict labor precautions. She denies vag bleeding and LOF. Condition at discharge: Good Disposition: DC-01 TO HOME OR SELFCARE Plan - Provider Discharge Summary Diet: routine Instructions: routine Additional instructions: [] Smoking cessation referral if applicable(refer to patient education folder for contact #) [] Refer to [facility]'s [facility] Booklet Call your doctor immediately for: * Fever > 100.5 * Heavy vaginal bleeding ( >1 pad per hour) * Severe persistent headache * Shortness of breath * Reddened, hot, painful area to leg or breast * Drainage or odor from incision. * Keep incision clean and dry at all times and follow doctor's instructions regarding bathing/showering - Follow up plan Follow up: SARKIS MACIAS MD [Primary Care Provider] - 7 Days (Please keep your schedule appointment in the office. If you have any questions or concerns, please do not hesitate to call the office at [phone].)
== END 2020-01-18 17:19 | disposition home or self-care (01) | DRG 781 ==
LOC: TRG 02:34 → APU 02:35 → TRG 03:09 → LD 03:11
PROVIDERS: ADMIT Obstetrics & Gynecology; ATTEND Obstetrics & Gynecology
DX: O26.893 Other specified pregnancy related conditions, third trimester (principal); Z3A.38 38 weeks gestation of pregnancy
CPT/HCPCS: 36415; 76815; 85025; 86592; 86850; 86900; 86901; G0378; J0595; J2590; J3010; J7120; Q0169; Q0177; U0003-CS